=== PATIENT | female | born 1995 | race Caucasian/White ===

== ENCOUNTER 2018-06-02 11:17 | Emergency (ER) | payer OTHER ==
[2018-06-02 11:35] VITALS: BMI 26.2
[2018-06-02 11:38] VITALS: O2SAT 98
--- NOTE | 2018-06-02 13:33 | C.PDOC ---
History Of Present Illness 22 year old female presents to the emergency department with complaints of nasal congestion, frontal headache, and viral syndrome for the last week. Patient denies sick contact, and states that she has been taking various flu and cold medications at home. Patient reports using Flonase intranasally, as well as occasional Tylenol in small doses. Patient reports that she has been feeling dizzy today. Time Seen by Provider: 06/02/18 13:23 Chief Complaint (Nursing): Flu-like Symptoms History Per: Patient History/Exam Limitations: None Onset/Duration Of Symptoms: Other (1 week) Current Symptoms Are (Timing): Still Present Past Medical History Reviewed: Historical Data, Nursing Documentation, Vital Signs Vital Signs: Last Vital Signs Temp 98.6 F 06/02/18 11:34 Pulse 112 H 06/02/18 11:34 Resp 20 06/02/18 11:34 BP 124/82 06/02/18 11:34 Pulse Ox 98 06/02/18 11:34 - Medical History PMH: No Chronic Diseases Surgical History: No Surg Hx Family History: States: No Known Family Hx - Social History Hx Alcohol Use: No Hx Substance Use: No Review Of Systems Except As Marked, All Systems Reviewed And Found Negative. Constitutional: Negative for: Fever, Chills ENT: Positive for: Nose Congestion Cardiovascular: Negative for: Chest Pain Respiratory: Negative for: Cough, Shortness of Breath Gastrointestinal: Negative for: Nausea, Vomiting, Abdominal Pain, Diarrhea Neurological: Positive for: Headache, Dizziness Physical Exam - Physical Exam Appears: Non-toxic, No Acute Distress Skin: Normal Color, Warm, Dry Head: Atraumatic, Normacephalic Eye(s): bilateral: Normal Inspection, PERRL, EOMI Ear(s): Bilateral: Normal Nose: Other (nasal congestion without discharge) Oral Mucosa: Moist Throat: Normal, No Erythema Neck: Normal, Supple Chest: Symmetrical, No Tenderness Cardiovascular: Rhythm Regular, No Murmur Respiratory: Normal Breath Sounds, No Rales, No Rhonchi, No Wheezing Gastrointestinal/Abdominal: Soft, No Tenderness Extremity: Normal ROM Neurological/Psych: Oriented x3, Normal Speech, Normal Cognition ED Course And Treatment O2 Sat by Pulse Oximetry: 98 (RA) Pulse Ox Interpretation: Normal Medical Decision Making Medical Decision Making: nasal congestion, no sinusitus normal 5 mo preg multiple prior evals for same with neg w/u. 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 Pulido Disposition Doctor Will See Patient In The: Office Counseled Patient/Family Regarding: Studies Performed, Diagnosis - Disposition Referrals: [facility] [Outside] [facility] [place] [Outside] [facility] [Outside] [facility] [Outside] Disposition: HOME/ ROUTINE Disposition Time: 13:33 Condition: GOOD Additional Instructions: continue Flonase/Fluticasone 1 spray to each nostril every 12 hours to reduce nasal congestion Tylenol 1000 mg every 6 hours as needed other flu/cold medicines per OB recommendations monitoring today per your request. Instructions: Medications and , Sinus Headache (DC) Forms: [facility] (Lao) - Clinical Impression Clinical Impression: Influenza-like illness, - Scribe Statement The provider has reviewed the documentation as recorded by the Scribe (Gera Evangelista) Provider Attestation: All medical record entries made by the Scribe were at my direction and personally dictated by me. I have reviewed the chart and agree that the record accurately reflects my personal performance of the history, physical exam, medical decision making, and the department course for this patient. I have also personally directed, reviewed, and agree with the discharge instructions and disposition.
[2018-06-02 14:36] VITALS: BP 118/75; PULSE 101; RESP 18; TEMP 98.4
== END 2018-06-02 14:38 | disposition home or self-care (01) ==
LOC: C.ER 11:17
DX: O26.899 Other specified pregnancy related conditions, unspecified trimester (principal); Z3A.00 Weeks of gestation of pregnancy not specified; J11.1 Influenza due to unidentified influenza virus with other respiratory manifestations